=== PATIENT | male | born 1985 | race African-American/Black ===

== ENCOUNTER → 2016-03-16 | Outpatient (CLI) | payer BC ==
[~2016-03-16] MED LIST: ACET-1256 PO; ALBU18002 INH; IBUP-1050 PO; INSDGI SC; METF500T5 PO; NAPR1CAP7 PO; NVLGI SC
== END | disposition home or self-care (01) ==
LOC: C.LABSPEC 14:27
PROVIDERS: ATTEND Internal Medicine Geriatric Medicine
DX: L03.019 Cellulitis of unspecified finger (principal)

== ENCOUNTER → 2016-05-08 | Outpatient (CLI) | payer BC ==
--- NOTE | 2016-05-08 12:59 | DIAGNOSTIC IMAGING REPORT ---
ANKLE MIN 3 VIEWS ROUTINE CLINICAL HISTORY: Left ankle pain and swelling. COMPARISON: None FINDINGS: Alignment of the left ankle is anatomic. Talar dome is intact. No acute fracture is present. There is mild soft tissue swelling. IMPRESSION: 1. No acute fracture or dislocation of the left ankle. 2. Mild soft tissue swelling. Electronically signed by: Peterson Son M.D. 05/08/2016 12:58 PM Dictated Date/Time: 05/08/2016 12:57 PM
--- NOTE | 2016-05-08 13:04 | DIAGNOSTIC IMAGING REPORT ---
LEFT FOOT MIN 3 VIEWS ROUTINE CLINICAL HISTORY: Left foot pain. COMPARISON: None FINDINGS: The tarsometatarsal joints are intact. There is deformity of the left second toe with mild soft tissue swelling. Several apparent well-corticated bone fragments are noted along the lateral aspect of the proximal and middle phalanx of the second toe. The findings are likely old. There is slight irregularity of the distal aspect of the middle phalanx. IMPRESSION: 1. No acute fracture or dislocation of the left foot. 2. Unusual appearance of the left second toe with truncated middle phalanx and several apparent supernumerary bones within the second toe. While nonspecific, a congenital anomaly such as polydactyly is favored. Electronically signed by: Peterson Son M.D. 05/08/2016 1:03 PM Dictated Date/Time: 05/08/2016 12:58 PM
== END | disposition home or self-care (01) ==
LOC: C.RAD 12:14
PROVIDERS: ATTEND Nurse Practitioner
DX: M25.472 Effusion, left ankle (principal); M79.672 Pain in left foot; R93.6 Abnormal findings on diagnostic imaging of limbs

== ENCOUNTER 2016-09-14 20:15 | Emergency (ER) | payer BC ==
[~2016-09-14] VITALS: Ht 186.7 cm; Wt 152.5 kg
[~2016-09-14 20:15] MED LIST changes: -ACET-1256 PO; -ALBU18002 INH; -IBUP-1050 PO; -METF500T5 PO; -NAPR1CAP7 PO
[2016-09-14 20:18] VITALS: TEMP 36.7; Ht 186.7 cm; Wt 152.5 kg
[2016-09-14] MEDS ORDERED: ALBU18002 INH (20:41)
[2016-09-14] MEDS ORDERED: IBUP-1050 PO (20:41)
[2016-09-14] MEDS ORDERED: NAPR1CAP7 PO (20:41)
[2016-09-14] MEDS ORDERED: METF500T5 PO (20:41)
[2016-09-14] MEDS ORDERED: ACET-1256 PO (20:41)
[2016-09-14] MEDS ORDERED: HYDROCODONE/ACETAMOPHEN 5/325MG TAB PO STA (21:31)
--- NOTE | 2016-09-14 22:21 | DIAGNOSTIC IMAGING REPORT ---
RIGHT ANKLE MIN 3 VIEWS ROUTINE, RIGHT FOOT MIN 3 VIEWS ROUTINE HISTORY: 31 years-old Male right foot/ankle pain, swelling Right COMPARISON: Right foot radiographs 04/16/2011 TECHNIQUE: 3 views of the right foot and 3 views of the right ankle FINDINGS: Ankle: No osteochondral defect identified. Ankle mortise appears anatomic. Note is made of pes planus deformity. There is spurring of the dorsal midfoot. No acute fracture or dislocation. There is however moderate circumferential soft tissue swelling about the ankle a small joint effusion. Foot: Midfoot alignment is anatomic. Note is made of pes planus deformity. Small ankle joint effusion is noted. No acute fracture, dislocation or significant degenerative changes. There is increased sclerosis of the subtalar joint with obscuration of the anterior process calcaneus. IMPRESSION: 1. Moderate soft tissue swelling about the ankle and small joint effusion without acute fracture. 2. Pes planus deformity. 3. 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 The above report was generated using voice recognition software. It may contain grammatical, syntax or spelling errors. Electronically signed by: Mariano Bright M.D. 09/14/2016 10:20 PM Dictated Date/Time: 09/14/2016 10:16 PM
--- NOTE | 2016-09-14 23:11 | EMERGENCY ROOM VISIT NOTE ---
ED Visit Note First contact with patient: 21:17 [id number] COMPLAINT: Foot pain HISTORY OF PRESENT ILLNESS: This 31-year-old male patient presents to the emergency department with his complaining of swelling and pain in the right ankle and foot at rest and worse with weight bearing. The patient denies any known injury, but states he has been doing a lot more walking over the past several weeks because he is trying to lose weight. Patient states he has had ongoing issues of pain and swelling in this foot and ankle for the past 6 months , but it got worse over the past week. The patient rates the pain as aching/ throbbing and 8/10 with weight bearing. The patient has had no relief of the pain. The patient is able to walk, but states this makes his pain much worse, especially in the morning when he gets out of bed. No numbness or weakness. No ankle pain. There are no lacerations of the foot. The patient is able to move all of their toes and their ankle without pain. No previous fracture to this foot. REVIEW OF SYSTEMS: GENERAL: A 6 system review of systems was completed with positives and pertinent negatives in the HPI. ALLERGIES: See chart MEDICATIONS: See chart PMH: See chart SOCIAL HISTORY: See chart PHYSICAL EXAM: Vital Signs: Reviewed Nurse's notes, vital signs stable. GENERAL : Pleasant and cooperative, in no acute distress, well-developed, well- nourished. MUSCULOSKELATAL: There is no visual deformity of the right ankle or foot. There is no erythema and no ecchymosis. There is no warmth. There is tenderness and swelling over the medial and anterior aspect of the right ankle and foot. There is no bony tenderness over the lateral or medial malleolus. No tenderness of the tib/fib. The range of motion of the right ankle is slightly limited secondary to pain. There is no tenderness over the plantar fascia. The skin is intact and there are no lacerations or puncture wounds. Dorsalis pedis pulse 2+. Capillary refill less than 2 seconds. IMAGING: RIGHT ANKLE MIN 3 VIEWS ROUTINE, RIGHT FOOT MIN 3 VIEWS ROUTINE HISTORY: 31 years-old Male right foot/ankle pain, swelling Right COMPARISON: Right foot radiographs 04/16/2011 TECHNIQUE: 3 views of the right foot and 3 views of the right ankle FINDINGS: Ankle: No osteochondral defect identified. Ankle mortise appears anatomic. Note is made of pes planus deformity. There is spurring of the dorsal midfoot. No acute fracture or dislocation. There is however moderate circumferential soft tissue swelling about the ankle a small joint effusion. Foot: Midfoot alignment is anatomic. Note is made of pes planus deformity. Small ankle joint effusion is noted. No acute fracture, dislocation or significant degenerative changes. There is increased sclerosis of the subtalar joint with obscuration of the anterior process calcaneus. IMPRESSION: 1. Moderate soft tissue swelling about the ankle and small joint effusion without acute fracture. 2. Pes planus deformity. 3. 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 EMERGENCY DEPARTMENT COURSE: I examined the patient. An X-ray of the right ankle and right foot was reviewed by myself and radiologist and reveals soft tissue swelling with a small ankle joint effusion, no acute fracture. Patient was given a dose of Elmira for pain control in the emergency department. The patient was placed in Dionisio wrap and gel ankle splint and instructed on the use of crutches. The patient was instructed to follow up with orthopedics. The patient was discharged home in good condition. Current/Historical Medications Scheduled Metformin Hcl Er (Glucophage Er), 1,000 MG PO BID Scheduled PRN Acetaminophen (Tylenol), 1,000 MG PO Q6H PRN for Pain Albuterol Sulfate (Proair Respiclick), 2 PUFFS INH Q4H PRN for Wheezing Ibuprofen (Advil), 800 MG PO Q8 PRN for Pain Naproxen Sodium (Naproxen Sodium), 220 MG PO UD PRN for Pain Allergies Coded Allergies: Shellfish (Verified Allergy, Unknown, ANAPHYLAXIS, 06/23/15) Vital Signs Date Time Temp Pulse Resp B/P (MAP) Pulse Ox O2 Delivery O2 Flow Rate FiO2 09/14/16 23:30 67 24 133/89 100 09/14/16 20:18 36.7 78 20 127/84 99 Room Air Medications Administered Medications (Trade) Dose Ordered Sig/Faizan Route Start Time Stop Time Status Last Admin Dose Admin Acetaminophen/ Hydrocodone Bitart ([place] 5/325 Tab) 1 tab NOW STAT PO 09/14/16 21:31 09/14/16 21:37 DC 09/14/16 21:48 1 TAB Departure Information Impression Primary Impression: Pain in right ankle and joints of right foot Dispostion Home / Self-Care Condition GOOD Referrals Norris Hay M.D. (PCP) Hernan Oconnell MD Patient Instructions ED Joint Pain, ED Sprain Ankle, My [facility] Additional Instructions Alternate ice and heat to the foot and ankle for swelling and discomfort. Ibuprofen 800mg and Tylenol 1000 mg every 8 hours for the pain. Avoid weight bearing and use crutches to stay completely off of the right foot, and wear the DIONISIO wrap with ankle splint until the pain subsides and you can walk without a limp. Follow up with family doctor or orthopedic surgeon if symptoms persist in 3-5 days. Please return to the emergency department for severe worsening pain or swelling , if the ankle or foot become red or hot to the touch, fevers, or any other concerns. Work Instructions Return To Work: 5 days Additional Work Instructions: Crutches
[2016-09-14 23:30] VITALS: BP 133/89; PULSE 67; O2SAT 100
== END 2016-09-14 23:32 | disposition home or self-care (01) ==
LOC: C.EDB 20:16 → C.EDD 23:32
DX: M21.41 Flat foot [pes planus] (acquired), right foot (principal); M25.571 Pain in right ankle and joints of right foot; M79.89 Other specified soft tissue disorders

== ENCOUNTER 2016-10-28 23:57 | Emergency (ER) | payer BC ==
[~2016-10-28 23:57] MED LIST changes: +ACET-1256 PO; +ALBU18002 INH; +IBUP-1050 PO; -INSDGI SC; +METF500T5 PO; +NAPR1CAP7 PO; -NVLGI SC
[2016-10-29 00:11] VITALS: TEMP 37.5; Ht 186.7 cm
[2016-10-29 02:02] LABS: BASO % 0.5 %; BASO ABS # 0.06 K/uL (0-0.2); COMPLETE YES; EOS % 1.6 %; IG% 0.3 %; LYMPH % 30.2 %; MEAN CELL VOLUME 77.8 fL (80-100); MEAN CORPUSCULAR HGB CONC 33.5 g/dl (32-36); MEAN PLATELET VOLUME 10.8 fL (7.4-10.4); MONO % 10.1 %; NEUT % 57.3 %; PLATELET COUNT 295 K/uL (130-400); RED BLOOD COUNT 5.53 M/uL (4.7-6.1); WHITE BLOOD COUNT 10.94 K/uL (4.8-10.8)
[2016-10-29 02:20] LABS: BLOOD UREA NITROGEN 11 mg/dl (7-18); BUN/CREATININE RATIO 10.3 (10-20); C-REACTIVE PROTEIN 3.84 mg/dl (0-0.29); CALCIUM 9.2 mg/dl (8.5-10.1); CARBON DIOXIDE 29 mmol/L (21-32); CHLORIDE 105 mmol/L (98-107); GLUCOSE 104 mg/dl (70-99); POTASSIUM 3.9 mmol/L (3.5-5.1); SODIUM 139 mmol/L (136-145)
[2016-10-29] MEDS ORDERED: OXYCODONE HCL IR 5 MG TAB (IMMEDIATE RELEASE) PO STA (03:51)
--- NOTE | 2016-10-29 05:09 | EMERGENCY ROOM VISIT NOTE ---
History First contact with patient: 00:26 Chief Complaint: KNEEPAIN Stated Complaint: LFT FOOT PAIN,RT KNEE PAIN,SWELLING,HURTS TO WALK/ History of Present Illness The patient is a 31 year old male who presents to the Emergency Room with complaints of left foot pain and right knee pain. The patient is a diabetic. He states that he has had issues with his right knee for several weeks. He has been seeing a fire captain and orthopedist for this. He states that over the past few days, he has been developing problems with his left foot. He states that he has been limping on the foot and is now having issues with his right knee. He has been having pain in the knee and tightness in his calf. He rates the discomfort a 10/10 and states it is worse with weightbearing. He has full range of motion of the knee. He denies any recent injuries to this knee. He denies any fevers/chills. The patient has been prescribed diclofenac for his foot pain. Review of Systems A complete 10 point review of systems was reviewed with the patient with pertinent positives and negatives as per history of present illness. All else were negative. Social History Smoking Status: Never Smoker Current/Historical Medications Scheduled Metformin Hcl Er (Glucophage Er), 1,000 MG PO BID Scheduled PRN Acetaminophen (Tylenol), 1,000 MG PO Q6H PRN for Pain Albuterol Sulfate (Proair Respiclick), 2 PUFFS INH Q4H PRN for Wheezing Ibuprofen (Advil), 800 MG PO Q8 PRN for Pain Naproxen Sodium (Naproxen Sodium), 440 MG PO UD PRN for Pain Physical Exam Vital Signs Date Time Temp Pulse Resp B/P (MAP) Pulse Ox O2 Delivery O2 Flow Rate FiO2 10/29/16 05:27 79 114/56 98 10/29/16 03:32 76 119/69 100 Room Air 10/29/16 00:11 37.5 85 18 139/73 98 Room Air Physical Exam VITALS: Vitals are noted on the nurse's note and reviewed by myself. Vital signs stable. GENERAL: This is a 31-year-old male, in no acute distress, nondiaphoretic, well- developed well-nourished. SKIN: The skin was without erythema, edema, or bruising. HEART: Regular rate and rhythm without murmurs gallops or rubs. LUNGS: Clear to auscultation bilaterally without wheezes, rales or rhonchi. MUSCULOSKELETAL: No deformities. There is no tenderness to palpation of his left foot. There is vague, diffuse tenderness of the right knee. Full range of motion of the knee. No erythema or warmth. No significant swelling or effusion. NEURO: Patient was alert and oriented to person place and time. Normal sensation to light and sharp touch. Medical Decision & Procedures ER Provider Diagnostic Interpretation: US VENOUS RIGHT LOWER EXTREMITY: No DVT Radiologist: Thuan Bañuelos MD RIGHT KNEE X-RAY: No acute bony abnormalities noted. LEFT FOOT X-RAY: No acute fractures noted. Laboratory Results 10/29/16 01:55 Red Blood Count 5.53, Mean Corpuscular Volume 77.8, Mean Corpuscular Hemoglobin 26.0, Mean Corpuscular Hemoglobin Concent 33.5, Mean Platelet Volume 10.8, Neutrophils (%) (Auto) 57.3, Lymphocytes (%) (Auto) 30.2, Monocytes (%) (Auto) 10.1, Eosinophils (%) (Auto) 1.6, Basophils (%) (Auto) 0.5, Neutrophils # (Auto ) 6.27, Lymphocytes # (Auto) 3.30, Monocytes # (Auto) 1.10, Eosinophils # (Auto ) 0.18, Basophils # (Auto) 0.06 10/29/16 01:55 Test 10/29/16 01:55 White Blood Count 10.94 K/uL (4.8-10.8) Red Blood Count 5.53 M/uL (4.7-6.1) Hemoglobin 14.4 g/dL (14.0-18.0) Hematocrit 43.0 % (42-52) Mean Corpuscular Volume 77.8 fL (80-100) Mean Corpuscular Hemoglobin 26.0 pg (25-34) Mean Corpuscular Hemoglobin Concent 33.5 g/dl (32-36) Platelet Count 295 K/uL (130-400) Mean Platelet Volume 10.8 fL (7.4-10.4) Neutrophils (%) (Auto) 57.3 % Lymphocytes (%) (Auto) 30.2 % Monocytes (%) (Auto) 10.1 % Eosinophils (%) (Auto) 1.6 % Basophils (%) (Auto) 0.5 % Neutrophils # (Auto) 6.27 K/uL (1.4-6.5) Lymphocytes # (Auto) 3.30 K/uL (1.2-3.4) Monocytes # (Auto) 1.10 K/uL (0.11-0.59) Eosinophils # (Auto) 0.18 K/uL (0-0.5) Basophils # (Auto) 0.06 K/uL (0-0.2) RDW Standard Deviation 39.0 fL (36.4-46.3) RDW Coefficient of Variation 13.8 % (11.5-14.5) Immature Granulocyte % (Auto) 0.3 % Immature Granulocyte # (Auto) 0.03 K/uL (0.00-0.02) Erythrocyte Sedimentation Rate 32 mm/hr (0-14) Anion Gap 5.0 mmol/L (3-11) Estimated GFR () 103.1 Estimated GFR (Non- 89.0 BUN/Creatinine Ratio 10.3 (10-20) Calcium Level 9.2 mg/dl (8.5-10.1) C-Reactive Protein 3.84 mg/dl (0-0.29) Medications Administered Medications (Trade) Dose Ordered Sig/Faizan Route Start Time Stop Time Status Last Admin Dose Admin Oxycodone HCl (Roxicodone Immediate Rel Tab) 5 mg NOW STAT PO 10/29/16 03:51 10/29/16 03:53 DC 10/29/16 04:00 5 MG ED Course The patient was evaluated as above. Labs were drawn and IV access was obtained. Patient was medicated with 5 mg oxycodone. Discharge instructions were reviewed with the patient. The patient verbalized understanding of my assessment and treatment plan and was discharged home in good condition. Medical Decision Differential diagnosis includes meniscal injury, ligamentous injury, gout, inflammatory arthropathy, RA, pseudogout, septic joint, among others. The patient is a 31-year-old male who presents today complaining of left foot and right knee pain. Ultrasound of the right leg was negative. X-rays of the right knee and left foot were reviewed and do not show any acute findings. Labs showed a minimal leukocytosis and mild elevation of ESR and CRP. Patient is afebrile. The joint is not warm and has full range of motion. I am unsure the cause of the patient's discomfort at this time. He will likely need further workup with orthopedics and believes he can see them today. He may need aspiration at that time. Patient was advised to return here if he develops any fevers or other worsening symptoms. Based on the patient's presentation and work up, I feel the patient is stable for outpatient treatment. The patient was educated to return to the emergency department for any worsening of their current condition or new/concerning symptoms. He will follow up with his orthopedist today. The patient's case was reviewed with Dr. Sullivan, ED attending physician, who agreed with my assessment and treatment plan. Medication Reconcilliation Current Medication List: was personally reviewed by me Blood Pressure Screening Patient's blood pressure: Normal blood pressure Impression Primary Impression: Right knee pain Additional Impression: Left foot pain Departure Information Dispostion Home / Self-Care Condition GOOD Referrals Norris Hay M.D. (PCP) Patient Instructions My [facility] Additional Instructions For pain control, you can use the following yncp-[id number]-yerchep medicines (if >12 yo): - Regular strength (325mg/tab) Tylenol (acetaminophen) 2 tabs every 4-6 hours as needed. Do not exceed 12 tablets in a 24 hour period. Avoid taking more than 4 grams (4000 mg) of Tylenol per day. This includes any other sources of acetaminophen you may take on a regular basis. - Regular strength (200 mg/tab) Advil (ibuprofen) 1-2 tabs every 4-6 hours as needed. Do not exceed a dose of 3200 mg per day. Elevate the leg for swelling. Apply ice to the knee as needed for pain. Follow-up with orthopedics or your primary care provider later today. Return to the emergency room with fevers, worsening pain/swelling or any other new/concerning symptoms. Problem Qualifiers Primary Impression: Right knee pain Chronicity: acute Qualified Codes: M25.561 - Pain in right knee
[2016-10-29 05:27] VITALS: BP 114/56; PULSE 79; O2SAT 98
--- NOTE | 2016-10-29 06:46 | DIAGNOSTIC IMAGING REPORT ---
R KNEE 3 VIEWS CLINICAL HISTORY: Right knee pain. No known injury. COMPARISON: Knee radiographs August 16, 2007. FINDINGS: Alignment of the right knee is anatomic. No fracture or osseous lesion is identified. There is a moderate size right knee joint effusion. There is minimal medial compartment joint space narrowing. IMPRESSION: 1. No acute fracture. 2. Moderate size right knee joint effusion. Electronically signed by: Peterson Son M.D. 10/29/2016 6:45 AM Dictated Date/Time: 10/29/2016 6:43 AM
--- NOTE | 2016-10-29 06:52 | DIAGNOSTIC IMAGING REPORT ---
L FOOT MIN 3 VIEWS ROUTINE CLINICAL HISTORY: Left foot pain. No known injury. COMPARISON: Left foot radiograph May 08, 2016. FINDINGS: Tarsometatarsal joints are intact. Deformity of the left second toe with mild soft tissue swelling is noted. The middle phalanx of the left second toe is truncated. As before, there are well-corticated bone fragments along the lateral aspect of the proximal and middle phalanges of the left second toe. This is unchanged as exam of May 08, 2016. There are suspected chronic soft tissue deformity. No acute fracture is identified. IMPRESSION: 1. No acute fracture or dislocation within the left foot. 2. Unchanged chronic deformity of the left second toe since exam of May 08, 2016 with truncated middle phalanx and several apparent supernumerary bones within the second toe. A congenital anomaly such as polydactyly is favored. Electronically signed by: Peterson Son M.D. 10/29/2016 6:51 AM Dictated Date/Time: 10/29/2016 6:48 AM
--- NOTE | 2016-10-29 07:00 | DIAGNOSTIC IMAGING REPORT ---
ULTRASOUND RIGHT LOWER EXTREMITY VENOUS CLINICAL HISTORY: Right leg pain. COMPARISON STUDY: No priors. TECHNIQUE: Real-time, grayscale, and color Doppler sonography of the deep veins of the right lower extremity was performed from the inguinal crease to the calf. Compression and augmentation were utilized. FINDINGS: There is no sonographic evidence of deep venous thrombosis identified in the right lower extremity. The common femoral, superficial femoral, and popliteal veins are patent and normally compressible. The greater saphenous vein and the profunda femoris vein at the junction with the common femoral vein are clear. The visualized calf veins are patent. IMPRESSION: There is no sonographic evidence of deep venous thrombosis identified in the right lower extremity. Electronically signed by: Tejinder Landis M.D. 10/29/2016 6:59 AM Dictated Date/Time: 10/29/2016 6:59 AM
== END 2016-10-29 05:28 | disposition home or self-care (01) ==
LOC: C.EDB 23:58 → C.EDC 10-29 05:28
DX: M25.561 Pain in right knee (principal); M79.672 Pain in left foot; E11.9 Type 2 diabetes mellitus without complications; Z79.84 Long term (current) use of oral hypoglycemic drugs

== ENCOUNTER → 2016-10-29 | Outpatient (CLI) | payer BC ==
[2016-10-29 12:08] LABS: SYNOVIAL FLUID APPEARANCE CLOUDY; SYNOVIAL FLUID COLOR YELLOW; SYNOVIAL FLUID MONONUC RELAT 11.8 %; SYNOVIAL FLUID POLYNUC RELAT 88.2 %
[2016-11-02 17:30] LABS: LYME DNA PCR CSF OR SYNOVIAL Not detected (Not Detected); LYME DNA SOURCE Synovial Fluid
== END | disposition home or self-care (01) ==
LOC: C.LAB1850 10:49
PROVIDERS: ATTEND Physician Assistant
DX: M25.461 Effusion, right knee (principal)

== ENCOUNTER → 2017-01-12 | Outpatient (CLI) | payer BC | END | disposition home or self-care (01) | LOC: C.RDSM 11:50 | PROVIDERS: ATTEND Podiatrist | DX: M25.571 Pain in right ankle and joints of right foot (principal) ==